=== PATIENT | female | born 1985 | race Caucasian/White ===

== ENCOUNTER 2016-05-04 19:04 | Emergency (ER) | payer OTHER ==
[~2016-05-04] VITALS: Ht 154.9 cm; Wt 57.2 kg
[~2016-05-04 19:04] MED LIST: MOTRIN600 MG PO; PRENATAL VITAMI1 T10 PO
[2016-05-04 19:08] VITALS: BP 138/95
--- NOTE | 2016-05-04 20:42 | NUR ---
TO ER BED 5
--- NOTE | 2016-05-04 20:55 | NUR ---
30Y F BIB FAMILY C/O OF JOINT PAIN. SHE HAS THIS PAIN FOR MONTHS NOW AND PAIN IS 9/10 IN SCALE.
[2016-05-04 21:25] VITALS: BP 138/95
--- NOTE | 2016-05-04 21:25 | NUR ---
Patient discharged with v/s stable. Written and verbal after care instructions given and explained. Patient alert, oriented and verbalized understanding of instructions. Ambulatory with steady gait. All questions addressed prior to discharge. ID band removed. Patient advised to follow up with PMD. Rx of TRAMADOL HCL AND PREDNISONE given. Patient educated on indication of medication including possible reaction and side effects. Opportunity to ask questions provided and answered.
== END 2016-05-04 21:25 | disposition home or self-care (01) ==
LOC: MED 19:04
DX: M25.50 Pain in unspecified joint (principal); R03.0 Elevated blood-pressure reading, without diagnosis of hypertension; J45.909 Unspecified asthma, uncomplicated

== ENCOUNTER 2016-06-23 16:41 | Emergency (ER) | payer OTHER ==
[~2016-06-23] VITALS: Ht 154.9 cm; Wt 59.0 kg
[2016-06-23 16:50] VITALS: BP 123/75
--- NOTE | 2016-06-23 16:58 | NUR ---
PT SELF MEDICATED WITH 800MG IBUPROFEN AT 1530HRS TODAY
[2016-06-23] MEDS ORDERED: ACETAMINOPHEN EXTRA STRENGTH 500 MG TAB ONE (17:01)
--- NOTE | 2016-06-23 18:18 | NUR ---
Patient ambulated to bed 7. RN evaluating patient at bedside.
--- NOTE | 2016-06-23 18:30 | NUR ---
PATIENT PRESENTS TO ED WITH C/O WATERY STOOLS > 20 AND EMESIS > 10 X 3 DAYS---SUBJECTIVE FEVER/CHILLS EPIGASTRIC PAIN DULL TYPE PAIN NON RADIATING-- HX---DENIES RX---NONE; SKIN IS PINK/WARM/DRY; AAOX4 WITH EVEN AND STEADY GAIT; LUNGS CLEAR BL; HR EVEN AND REGULAR; PT DENIES ANY FEVER, CP, SOB, OR COUGH AT THIS TIME; PATIENT STATES EPIGASTRIC PAIN OF 7/10 AT THIS TIME; VSS; PATIENT POSITIONED FOR COMFORT; HOB ELEVATED; BEDRAILS UP X2; BED DOWN. ER MD MADE AWARE OF PT STATUS.
--- NOTE | 2016-06-23 19:12 | NUR ---
REPORT GIVEN TO JOSE A HOOVER
--- NOTE | 2016-06-23 19:15 | NUR ---
AT BEDSIDE EVALAUATING PT. RECEIVED ALERT,NOT IN ACUTE DISTRESS. VERBALIZED LOWER ABDOMINAL PAIN,HEADACHE AND NAUSEA. DENIES URINARY FREQUENCY,DYSURIA. NEW ORDERS GIVEN. WILL CONTINUE TO MONITOR.
[2016-06-23] MEDS ORDERED: NACL 0.9% 1,000 ML IV ONE (19:20)
[2016-06-23] MEDS ORDERED: KETOROLAC 30 MG/ML VIAL IVP ONE (19:20)
[2016-06-23] MEDS ORDERED: ONDANSETRON 4 MG/2 ML VIAL IVP ONE (19:20)
--- NOTE | 2016-06-23 19:25 | NUR ---
NS 1 LITER BOLUS GIVEN.
--- NOTE | 2016-06-23 19:30 | NUR ---
TORADOL 30 MG IVP AND ZOFRAN 8 MG IVP GIVEN ORDERED.
--- NOTE | 2016-06-23 20:30 | NUR ---
Patient discharged with v/s stable. Written and verbal after care instructions given and explained. Patient alert, oriented and verbalized understanding of instructions. Ambulatory with steady gait. All questions addressed prior to discharge. ID band removed. Patient advised to follow up with PMD. Rx of IMMODIUM,CIPRO,MOTRIN,ZOFRAN given. Patient educated on indication of medication including possible reaction and side effects. Opportunity to ask questions provided and answered.
[2016-06-23 20:39] VITALS: BP 95/60
== END 2016-06-23 20:30 | disposition home or self-care (01) ==
LOC: MED 16:42
DX: N39.0 Urinary tract infection, site not specified (principal); R19.7 Diarrhea, unspecified; J45.909 Unspecified asthma, uncomplicated
CPT/HCPCS: 81002; 81025; 96361; 96374; 96375; 99284; J1885; J2405; J7030

== ENCOUNTER 2016-07-17 01:50 | Emergency (ER) | payer OTHER ==
[~2016-07-17] VITALS: Ht 154.9 cm; Wt 56.7 kg
[2016-07-17 02:10] VITALS: BP 111/61
--- NOTE | 2016-07-17 02:10 | NUR ---
PT TAKEN TO BED 3
--- NOTE | 2016-07-17 02:12 | NUR ---
Dr. Montes De Oca evaluating patient at bedside.
[2016-07-17] MEDS ORDERED: NACL 0.9% 1,000 ML IV ONE (02:15)
[2016-07-17] MEDS ORDERED: TYLENOL325 M2 PO (02:20)
--- NOTE | 2016-07-17 02:31 | NUR ---
PT BIB SELF C/O LOW ABD PAIN S/P TUMMY TUCK 06/25/16 IN TJ. WOUND INFECTION, PAIN 09/03, WOUND RED/BLACK/HOT TO TOUCH/DRAINING. PT STS "I WENT TO TJ TWO TIMES FOR PLASMA PATCHED." PT DENIES N/V/D; SKIN IS INTACT, FLUSHED/WARM/DRY; AAOX4, PERRL, WITH EVEN STEADY GAIT-SLOW S/P PAIN; LUNGS CLEAR BL, BREATHING UNLABORED; HR EVEN AND REGULAR, BS ACTIVE X4, NO TENDERNESS TO PALPATION, NO HEPATOSPLENOMEGALLY PALPATED. PT DENIES ANY FEVER, CP, SOB, OR COUGH AT THIS TIME; PT STATES 7/10 PAIN AT THIS TIME; VSS; PATIENT POSITIONED FOR COMFORT; HOB ELEVATED; BEDRAILS UP X2; BED DOWN. ER MD DR ANDINO AT BEDSIDE, ALL ORDED EXECUTED. IV 20GA LT A/C DONE, BLOOD FOR C&S X2/BLOOD SENT TO LAB. UA DONE, HCG NEG. REPORT GIVEN TO JOSE A LEMON
--- NOTE | 2016-07-17 02:39 | NUR ---
Patient noted to have existing wounds upon arrival to ER. Photos taken of wound and placed in chart. Wound covered with dressing. Physician informed.
--- NOTE | 2016-07-17 02:54 | NUR ---
Ultrasound at bedside.
--- NOTE | 2016-07-17 02:54 | NUR ---
PT HAVING US AT BEDSIDE
[2016-07-17 03:54] VITALS: BP 102/59
--- NOTE | 2016-07-17 03:55 | NUR ---
Patient discharged with v/s stable. Written and verbal after care instructions given and explained. Patient alert, oriented and verbalized understanding of instructions. Ambulatory with steady gait. All questions addressed prior to discharge. ID band removed. Patient advised to follow up with PMD. Rx of TRAMADOL AND CLINDAMYCIN given. Patient educated on indication of medication including possible reaction and side effects. Opportunity to ask questions provided and answered.
== END 2016-07-17 03:55 | disposition home or self-care (01) ==
LOC: MED 01:50
DX: L76.82 Other postprocedural complications of skin and subcutaneous tissue (principal); L03.311 Cellulitis of abdominal wall; Y83.8 Other surgical procedures as the cause of abnormal reaction of the patient, or of later complication, without mention of misadventure at the time of the procedure; Y92.89 Other specified places as the place of occurrence of the external cause
CPT/HCPCS: 36415; 76705; 80053; 81002; 81025; 85025; 85610; 85730; 87070; 87186; 99285; J7030; Q0092

== ENCOUNTER 2017-07-17 07:24 | Emergency (ER) | payer OTHER ==
[~2017-07-17] VITALS: Ht 154.9 cm; Wt 62.6 kg
[~2017-07-17 07:24] MED LIST changes: +ACET-2619 PO; -MOTRIN600 MG PO; +PREN-385 PO; -PRENATAL VITAMI1 T10 PO
[2017-07-17 07:27] VITALS: BP 106/76
[2017-07-17] MEDS: predniSONE 20 MG TAB PO ONE (08:34)
[2017-07-17] MEDS: IBUPROFEN 600 MG TAB PO ONE (08:34)
[2017-07-17] MEDS: AMOXICILLIN 500 MG CAP PO ONE (08:35)
[2017-07-17 09:14] VITALS: BP 109/80
== END 2017-07-17 09:13 | disposition home or self-care (01) ==
LOC: MED 07:24
DX: J02.9 Acute pharyngitis, unspecified (principal); J45.909 Unspecified asthma, uncomplicated; Z79.899 Other long term (current) drug therapy
CPT/HCPCS: 87081; 99284; J7512; 96374; 99285